=== PATIENT | male | born 1980 | race Asian ===

== ENCOUNTER 2022-07-20 06:08 | Emergency (ER) | payer BC ==
[~2022-07-20] VITALS: Ht 193 cm; Wt 145.2 kg
[2022-07-20 06:12] VITALS: BP 137/65; TEMP 98.2
== END 2022-07-20 07:25 | disposition home or self-care (01) ==
LOC: ED 06:08
DX: M11.261 Other chondrocalcinosis, right knee (principal)
CPT/HCPCS: 99283